=== PATIENT | female | born 1995 | race African-American/Black ===

== ENCOUNTER 2020-11-13 12:52 | Emergency (ER) | payer MEDICAID ==
[~2020-11-13] VITALS: Ht 160 cm; Wt 56.8 kg
[2020-11-13 13:24] VITALS: BP 96/58; PULSE 108; TEMP 99.6
== END 2020-11-13 15:00 | disposition home or self-care (01) ==
LOC: COL.ER 12:52
DX: B34.9 Viral infection, unspecified (principal); Z20.822 Contact with and (suspected) exposure to COVID-19

== ENCOUNTER 2021-02-06 18:54 | Emergency (ER) | payer MEDICAID ==
[~2021-02-06] VITALS: Ht 157.5 cm; Wt 56.8 kg
[2021-02-06 19:02] VITALS: TEMP 98
[2021-02-06 20:51] VITALS: BP 124/78; PULSE 76
== END 2021-02-06 20:51 | disposition home or self-care (01) ==
LOC: COL.ER 18:54
DX: H61.21 Impacted cerumen, right ear (principal); B34.9 Viral infection, unspecified; Z20.822 Contact with and (suspected) exposure to COVID-19

== ENCOUNTER 2021-03-05 09:33 | Emergency (ER) | payer MEDICAID ==
[~2021-03-05] VITALS: Ht 157.5 cm; Wt 56.8 kg
[2021-03-05 10:13] VITALS: TEMP 99.3
[2021-03-05 11:23] VITALS: BP 128/71; PULSE 95
== END 2021-03-05 11:23 | disposition home or self-care (01) ==
LOC: COL.ER 09:33
DX: B34.9 Viral infection, unspecified (principal); Z20.822 Contact with and (suspected) exposure to COVID-19